=== PATIENT | female | born 1955 | race Native Hawaiian/Other Pacific Islander ===

== ENCOUNTER 2018-07-22 12:08 | Outpatient (CLI) | payer BC ==
[2018-07-22 12:25] LABS: PLATELET COUNT 288 K/uL (152-353)
[2018-07-22 12:50] LABS: POTASSIUM 4.4 mmol/L (3.6-5.2)
== END 2018-07-22 23:33 | disposition home or self-care (01) ==
LOC: LABW 12:08
PROVIDERS: Family Medicine
DX: I73.9 Peripheral vascular disease, unspecified (principal); I10 Essential (primary) hypertension; E11.51 Type 2 diabetes mellitus with diabetic peripheral angiopathy without gangrene; E78.00 Pure hypercholesterolemia, unspecified; E83.42 Hypomagnesemia
CPT/HCPCS: 36415; 80053; 80061; 81000; 82306; 83036; 83735; 84439; 84443; 85027; 87077; 87086; 87088; 87186

== ENCOUNTER 2022-02-15 14:35 | Outpatient (CLI) | payer OTHER | END 2022-02-15 23:39 | disposition home or self-care (01) | LOC: RAD 14:35 | PROVIDERS: ATTEND Nurse Practitioner | DX: M25.511 Pain in right shoulder (principal); M79.601 Pain in right arm ==